=== PATIENT | female | born 1980 | race Caucasian/White ===

== ENCOUNTER 2018-11-27 07:54 | Day surgery (SDC) | payer BC, SELFPAY ==
[2018-11-27 08:33] LABS: Internal QC Validated? YES +Cl - CLEAR BKGD
[2018-11-27 08:34] LABS: Pregnancy, Urine Negative Negative
[2018-11-27 08:54] VITALS: BP 156/85; PULSE 79; RESP 16; TEMP 36.5; O2SAT 100; BMI 37.5
[2018-11-27] MEDS: Cefazolin 2 GM in 0.9% Normal Saline 100 ML IV (09:57)
[2018-11-27] MEDS: Sodium Bicarbonate 50 MEQ/50 ML Vial IRRIGATION (10:05)
[2018-11-27] MEDS: Heparin 10,000 UNITS/10 ML Vial 10000 UNITS OPERA.SITE (10:05)
[2018-11-27] MEDS: Dimethyl Sulfoxide 50 ML Solution URETHRAL (10:05)
--- NOTE | 2018-11-27 10:09 | DCINST_ITS ---
Discharge Diet: Light diet - advance as tolerated Discharge Activity: Return to Normal Activity Suture Line Care: Avoid Pulling/Pushing, Avoid Pinching/Bending Allergies/Adverse Reactions: Allergies cyclobenzaprine [From Flexeril] Allergy (Verified 11/20/18 13:45) Hives duloxetine [From Cymbalta] Allergy (Verified 11/20/18 13:45) Other SYMPTOMS OF A HEARTACHE Medications to take at Discharge DiphenhydrAMINE [Benadryl] 25 mg PO DAILY 11/20/18 Loratadine [Claritin] 10 mg PO DAILY 11/20/18 Mirabegron [Myrbetriq] 50 mg PO DAILY 11/20/18 Mth/Me Blue/Sod Phos/Phen/Hyos [Uribel Capsule] 1 each PO TID 11/20/18 Pentosan Polysulfate Sodium [Elmiron] 100 mg PO TID 11/20/18 traMADol [Ultram (G)] 50 mg PO Q6H PRN PRN 11/20/18 Orders to be completed after discharge: ,Urine Time Frame: 11/27/18, Location: Laboratory Primary Care Physician: Beulah Resendiz MD [Primary Care Provider] - Test Results: Test results from this visit will be discussed in further detail at your follow- up appointment, if applicable. Please Follow Up With: Basilio Dunne MD When: in 2 weeks, please call to make an appointment.
--- NOTE | 2018-11-27 10:09 | PCM.OPRPT ---
Report of Operation Date of Procedure: 11/27/18 Pre-Operative Diagnosis: Interstitial cystitis Post-Operative Diagnosis: Same Surgery/Procedure Performed:: Cystoscopy, hydrodistention of the bladder, instillation of medications for interstitial cystitis Description of Surgical Findings:: 38-year-old female who has interstitial cystitis she required hydrodistention in the past she has been having a lot of bladder pain and wants to have another hydrodistention that she has a lot of relief of pressure and pain after hydrodistention. Expect that the patient will try like to limit the number hydrodistention's last year she had before hydrodistention that I thought was a little bit excessive. 38-year-old female taken back to the operating room after anesthesia was spinal she was placed in dorsolithotomy position the urethra vaginal area prepped and draped in usual sterile fashion went of the bladder with a 21 [place] rigid cystourethroscope the entire bladder was normal no tumors or stones within the bladder I then I distended the bladder 80 cm of water was hung up and we distended the bladder for 5 minutes straight then drained the bladder and he had a volume of 425 cc we then did another hydrodistention for 5 minutes the second volume was 520 cc so did improve with the second hydrodistention we then placed a 20 [place] catheter bladder we instilled a cocktail of medications into the bladder for IC including DMSO bicarbonate lidocaine heparin. After that this was instilled patient anesthetic was reversed catheter was left in place and she went to the PACU with a catheter clamped we will unclamp the catheter an hour and then remove the catheter after she is ambulating and she will go home after she she urinates she will follow-up in office in for a few weeks. Type of Anesthesia:: Spinal - Admit VTE Documentation VTE Present on Admission: No VTE Mechan Device Prophylaxis: SCD's
[2018-11-27 10:18] VITALS: BP 119/89; BP 156/85; PULSE 102; RESP 16; TEMP 36.1; O2SAT 100
[2018-11-27 10:30] VITALS: BP 133/89; BP 156/85; PULSE 91; RESP 16; O2SAT 99
[2018-11-27 10:45] VITALS: BP 131/88; BP 156/85; PULSE 82; RESP 16; O2SAT 100
[2018-11-27 11:00] VITALS: BP 101/70; BP 156/85; PULSE 86; RESP 16; TEMP 36.1; O2SAT 98
[2018-11-27] MEDS: Ketorolac 15 MG/ML Vial IV (11:02)
[2018-11-27] MEDS: Ondansetron 4 MG/2 ML Vial IV (14:41)
[2018-11-27 16:10] VITALS: BP 119/81; BP 156/85; PULSE 75; RESP 16; TEMP 36.6; O2SAT 100
== END 2018-11-27 16:18 | disposition home or self-care (01) ==
LOC: SDC 07:56 → AC 07:57
PROVIDERS: Family Provider Internal Medicine; PCP Internal Medicine; Referring Provider Urology; Visit Provider Urology
PROC: 0T7B7ZZ Dilation of Bladder, Via Natural or Artificial Opening (ICD-10-PCS; CPT 51720; principal; 2018-11-27 09:50)
DX: N30.11 Interstitial cystitis (chronic) with hematuria (principal); R35.0 Frequency of micturition; R35.1 Nocturia; Z87.891 Personal history of nicotine dependence
CPT/HCPCS: 00910; 51720; 52260; 81025; J7120; A4216; J1212; J2405

== ENCOUNTER 2019-04-16 07:48 | Day surgery (SDC) | payer BC, SELFPAY ==
[2019-04-16] VITALS (7 sets, daily range): BP systolic 113–149; BP diastolic 68–93; PULSE 69–101; RESP 16; TEMP 36.2–36.6; O2SAT 93–100; BMI 39.2
[2019-04-16 08:07] LABS: Internal QC Validated? YES +Cl - CLEAR BKGD; Pregnancy, Urine Negative Negative
[2019-04-16] MEDS: Cefazolin 2 GM in 0.9% Normal Saline 100 ML IV (09:31)
--- NOTE | 2019-04-16 09:44 | DCINST_ITS ---
Discharge Diet: Light diet - advance as tolerated Discharge Activity: Return to Normal Activity Suture Line Care: Avoid Pulling/Pushing, Avoid Pinching/Bending Allergies/Adverse Reactions: Allergies cyclobenzaprine [From Flexeril] Allergy (Verified 04/09/19 10:06) Hives duloxetine [From Cymbalta] Allergy (Verified 04/09/19 10:06) Other SYMPTOMS OF A HEARTACHE Medications to take at Discharge DiphenhydrAMINE [Benadryl] 25 mg PO DAILY 11/20/18 Loratadine [Claritin] 10 mg PO DAILY 11/20/18 Mirabegron [Myrbetriq] 50 mg PO DAILY 11/20/18 Mth/Me Blue/Sod Phos/Phen/Hyos [Uribel Capsule] 1 each PO TID 11/20/18 Pentosan Polysulfate Sodium [Elmiron] 100 mg PO TID 11/20/18 traMADol [Ultram (G)] 50 mg PO Q6H PRN PRN 11/20/18 Acetaminophen [Tylenol Extra Strength] 500 mg PO Q4H PRN PRN #20 tab 04/16/19 Ciprofloxacin [Cipro] 500 mg PO BID #6 tab 04/16/19 Ibuprofen 600 mg PO Q6H PRN PRN #20 tab 04/16/19 The following prescriptions were given: Acetaminophen [Tylenol Extra Strength] 500 mg PO Q4H PRN PRN #20 tab PRN Reason: Pain Ibuprofen 600 mg PO Q6H PRN PRN #20 tab PRN Reason: Pain Ciprofloxacin [Cipro] 500 mg PO BID #6 tab Primary Care Physician: Beulah Resendiz MD [Primary Care Provider] - Test Results: Test results from this visit will be discussed in further detail at your follow- up appointment, if applicable. Please Follow Up With: Basilio Dunne MD When: please call to make an appointment.
--- NOTE | 2019-04-16 10:11 | PCM.OPRPT ---
Report of Operation Date of Procedure: 04/16/19 Pre-Operative Diagnosis: Interstitial cystitis with recent flareup Post-Operative Diagnosis: Same Surgery/Procedure Performed:: Cystoscopy hydrodistention of the bladder x2 and instillation of a bladder IC cocktail Description of Surgical Findings:: Indication 39-year-old female presents to the operating room for hydrodistention and instillation of interstitial cystitis IC cocktail Patient was taken back to the operating room after smooth induction of general anesthesia she is she was placed in dorsolithotomy position the urethra and vaginal area were prepped and draped in usual sterile fashion went into the bladder with a 819 [place] rigid cystourethroscope the entire bladder was normal some mild irritation of the bladder I then filled up the bladder as much as possible we held the bags of 80 cm above the bladder and her bladder distention was performed she could only hold about 400 cc for started leaking around the cystoscope and only 400 cc with the first distention for 5 minutes seconds attention was then done again only could hold 500 cc and we distended the bladder for 5 minutes. At the end of the distention Rolle catheter was placed 20 [place] catheter into the bladder we placed a cocktail of IC medications as documented per the nursing record into the bladder this was combination of heparin lidocaine DMSO bicarbonate. The the instillation was put into the bladder the catheter was clamped and patient anesthetic was reversed plan to leave the catheter in for 2 hours leave the bladder medication and for 2 hours drained the medication after 2 hours and remove the catheter retirement go home after she urinates she will be follow-up in my office after the hydrodistention in a few weeks. Type of Anesthesia:: General
[2019-04-16] MEDS: Ketorolac 15 MG/ML Vial IV (10:35)
--- NOTE | 2019-04-16 10:40 | OP.PCM_ITS ---
Report of Operation Date of Procedure: 04/16/19 Pre-Operative Diagnosis: Interstitial cystitis with recent flareup Post-Operative Diagnosis: Same Surgery/Procedure Performed:: Cystoscopy hydrodistention of the bladder x2 and instillation of a bladder IC cocktail Description of Surgical Findings:: Indication 39-year-old female presents to the operating room for hydrodistention and instillation of interstitial cystitis IC cocktail Patient was taken back to the operating room after smooth induction of general anesthesia she is she was placed in dorsolithotomy position the urethra and vaginal area were prepped and draped in usual sterile fashion went into the bladder with a 819 Citizen [place] rigid cystourethroscope the entire bladder was normal some mild irritation of the bladder I then filled up the bladder as much as possible we held the bags of 80 cm above the bladder and her bladder distention was performed she could only hold about 400 cc for started leaking around the cystoscope and only 400 cc with the first distention for 5 minutes seconds attention was then done again only could hold 500 cc and we distended the bladder for 5 minutes. At the end of the distention Rolle catheter was placed 20 Citizen [place] catheter into the bladder we placed a cocktail of IC medications as documented per the nursing record into the bladder this was combination of heparin lidocaine DMSO bicarbonate. The the instillation was put into the bladder the catheter was clamped and patient anesthetic was reversed plan to leave the catheter in for 2 hours leave the bladder medication and for 2 hours drained the medication after 2 hours and remove the catheter snf go home after she urinates she will be follow-up in my office after the hydrodistention in a few weeks. Type of Anesthesia:: General
--- NOTE | 2019-04-16 13:24 | NURSING ---
tatum clamped, per report from OR nurse, AC nurse aware to unclamp in 2 hours.
== END 2019-04-16 13:43 | disposition home or self-care (01) ==
LOC: SDC 07:51 → AC 07:52
PROVIDERS: Anesthesiology; Family Provider Internal Medicine; PCP Internal Medicine; Referring Provider Urology; Visit Provider Urology
PROC: 0T7B7ZZ Dilation of Bladder, Via Natural or Artificial Opening (ICD-10-PCS; CPT 51720; principal; 2019-04-16 09:15)
DX: N30.10 Interstitial cystitis (chronic) without hematuria (principal); I10 Essential (primary) hypertension; R35.1 Nocturia; R35.0 Frequency of micturition; Z87.891 Personal history of nicotine dependence
CPT/HCPCS: 51720; 52260; 81025; J7120; A4216; J1212; J2405

== ENCOUNTER 2020-08-11 06:04 | Day surgery (SDC) | payer BC, SELFPAY ==
[2019-04-16 08:27] VITALS: BMI 39.2
[2020-08-11] VITALS (9 sets, daily range): BP systolic 114–158; BP diastolic 51–95; PULSE 65–110; RESP 16–18; TEMP 36.1–36.7; O2SAT 96–100; BMI 39.5
[2020-08-11 06:36] LABS: Internal QC Validated? YES +Cl - CLEAR BKGD; Pregnancy, Urine Negative Negative
[2020-08-11] MEDS: Lactated Ringers 1,000 ML 100 ML IV ×2 (06:52→10:51)
--- NOTE | 2020-08-11 07:19 | PCM.HP.STD ---
Problem List (1) Interstitial cystitis Status: Chronic History of Present Illness Date of Admission: 08/11/20 Chief Complaint: Interstitial cystitis The patient is a 40 year old female with a history of interstitial cystitis she is currently taking Uribel to manage her bladder pain and also on Myrbetriq she frequently has to go to the bathroom now she is having more frequency urgency pain discomfort getting up at night multiple times she is had hydrodistention's in the past with good results and success and improvement of her symptoms she understands is possible that the resolution and the results of the hydrostatic distention can vary and no guarantees were made that her symptoms will resolve with the procedure. Working to proceed with a spinal anesthesia because she has a lot of pain and discomfort with hydrodistention. Past Medical History Past Medical History (Chronic Problems): Chronic Problems Interstitial cystitis (Chronic) Allergies cyclobenzaprine [From Flexeril] Allergy (Verified 08/03/20 10:55) Hives duloxetine [From Cymbalta] Allergy (Verified 08/03/20 10:55) Other SYMPTOMS OF A HEARTACHE Home Medications: Ambulatory Orders Medication Instructions Recorded DiphenhydrAMINE [Benadryl] 25 mg PO DAILY PRN 11/20/18 Loratadine [Claritin] 10 mg PO DAILY 11/20/18 Mirabegron [Myrbetriq] 50 mg PO DAILY 11/20/18 Mth/Me Blue/Sod Phos/Phen/Hyos 1 each PO TID 11/20/18 [Uribel Capsule] traMADol [Ultram (G)] 50 mg PO Q6H PRN PRN 11/20/18 Acetaminophen [Tylenol Extra 500 mg PO Q4H PRN PRN #20 tab 04/16/19 Strength] Ibuprofen 600 mg PO Q6H PRN PRN #20 tab 04/16/19 Surgical History: no surgical history Smoking Status: Former smoker Review of Systems Constitutional: Denies: Chills, Fever, Weight Change HEENT: Denies: Head Aches, Sinus Congestion, Sinus Drainage Cardiovascular: Denies: Chest Pain, Palpitations Respiratory: Denies: Cough, Shortness of breath at rest, Sputum production Gastrointestinal: Denies: Abdominal Pain, Nausea, Vomiting Genitourinary: Denies: Dysuria Musculoskeletal: Denies: Joint Pain, Joint Tenderness Skin: Denies: Rash, Wounds Neurological: Denies: Numbness, Tingling, Focal weakness Psychiatric: Denies: Anxiety, Depression, Homicidal Ideations, Suicidal Ideations Hematologic/ Lymphatic: Denies: Easy Bruising, Easy Bleeding VTE Information - Inpt Only VTE Present on Admission: No - Physical Exam Vitals/I&O's: Vital Signs Temp Pulse Resp BP Pulse Ox 98.1 F 92 16 158/95 H 97 08/11/20 06:40 08/11/20 06:40 08/11/20 06:40 08/11/20 06:40 08/11/20 06:40 Oxygen Delivery Method Room Air Weight: 117.9 kg Body Mass Index (BMI) 39.5 General: Alert, Oriented x3, Cooperative HEENT: Atraumatic, PERRLA, EOMI, Normocephalic Neck: Supple, No JVD, Negative Carotid Bruits Lungs: Clear to auscultation, Normal air movement Cardiovascular: Regular rate, No murmurs Abdomen: Bowel Sounds Present, Soft, Non Tender Extremities: No edema, Capillary Refill Less than 3 Seconds Skin: No rashes, No breakdown Musculoskeletal: No Tenderness to Palpation of Joints or Extremities Neurological: Cranial nerves II-XII grossly intact Psych/Mental Status: Normal Affect, Appropriate Laboratory Results 08/11/20 06:28: Urine Test Negative Current Medications Cefazolin Sodium 2 gm/ Sodium (Chloride) 110 mls @ 150 mls/hr IV PREOP ONE Stop: 08/11/20 08:13 Lactated Ringer's () 1,000 mls @ 100 mls/hr IV .Q10H PENELOPE Last Admin: 08/11/20 06:52 Dose: 100 mls/hr Documented by: Assessment/Plan 40-year-old female with interstitial cystitis plan to proceed with cystoscopy hydrodistention and instillation of IC medications into the bladder this will be done under spinal anesthesia.
--- NOTE | 2020-08-11 07:21 | DCINST_ITS ---
Discharge Diet: Light diet - advance as tolerated Discharge Activity: Return to Normal Activity Call your doctor if you observe: Fever of 101 or Higher Allergies/Adverse Reactions: Allergies cyclobenzaprine [From Flexeril] Allergy (Verified 08/03/20 10:55) Hives duloxetine [From Cymbalta] Allergy (Verified 08/03/20 10:55) Other SYMPTOMS OF A HEARTACHE Medications to take at Discharge DiphenhydrAMINE [Benadryl] 25 mg PO DAILY PRN 11/20/18 Loratadine [Claritin] 10 mg PO DAILY 11/20/18 Mirabegron [Myrbetriq] 50 mg PO DAILY 11/20/18 Mth/Me Blue/Sod Phos/Phen/Hyos [Uribel Capsule] 1 each PO TID 11/20/18 traMADol [Ultram (G)] 50 mg PO Q6H PRN PRN 11/20/18 Acetaminophen [Tylenol Extra Strength] 500 mg PO Q4H PRN PRN #20 tab 04/16/19 Ibuprofen 600 mg PO Q6H PRN PRN #20 tab 04/16/19 Primary Care Physician: Beulah Resendiz MD [Primary Care Provider] - Test Results: Test results from this visit will be discussed in further detail at your follow- up appointment, if applicable. Please Follow Up With: Basilio Dunne MD When: in 2 weeks, please call to make an appointment.
[2020-08-11] MEDS: Cefazolin 2 GM in 0.9% Normal Saline 100 ML IV (07:28)
[2020-08-11] MEDS: Lidocaine Jelly 2% 20 ML Syringe (URO-JET) 20 APPLIC (07:40)
[2020-08-11] MEDS: Sodium Bicarbonate 50 MEQ/50 ML Vial IRRIGATION (08:00)
[2020-08-11] MEDS: Heparin 10,000 UNITS/10 ML Vial 10000 UNITS OPERA.SITE (08:00)
[2020-08-11] MEDS: Hydrocortisone Sod Succinate 100 MG/2 ML Vial 150 MG IV (08:00)
[2020-08-11] MEDS: Dimethyl Sulfoxide 50 ML Solution URETHRAL (08:00)
--- NOTE | 2020-08-11 08:04 | PCM.OPRPT ---
Problem List (1) Interstitial cystitis Status: Chronic Report of Operation Date of Procedure: 08/11/20 Pre-Operative Diagnosis: Interstitial cystitis Post-Operative Diagnosis: Same Surgery/Procedure Performed:: Cystoscopy, hydrodistention of the bladder, instillation of interstitial cystitis cocktail Description of Surgical Findings:: 40-year-old female who has interstitial cystitis she is been doing relatively well for the past year but now is gone worse urinary symptoms with frequency, urgency having to go the bathroom all the time, also has bladder pain constantly. At night she is up multiple times. She is currently taking Uribel, she is also taking Myrbetriq but with these medications she still having lot of pain and problems so today we can proceed with a hydrodistention of the bladder she understands no guarantees this will help her urinary symptoms. 40-year-old female taken back to the operating room at the smooth induction of anesthesia she had a spinal anesthesia per her request. She was placed in dorsolithotomy position after the spinal took cold. The urethra and vaginal area were prepped and draped in usual sterile fashion by the nurses I then went into the bladder with a rigid cystourethroscope entire length the urethra was normal the trigone was normal some mild trigonitis the left and right ureteral orifice were normal position the bladder wall was nice and smooth no tumors or stones seen within the bladder wall inspected the posterior wall left wall right wall at the dome and anterior bladder. After complete inspection then we performed the first hydrodistention we set the normal saline at 80 cm above her bladder and ran the water in for 5minutes she was not able to hold that much water in her bladder a lot of the water would run around the the scope. After the first distention of 5 minutes we only drained 300 cc in the bladder. She did have glomerulations throughout the bladder consistent with IC. We then did a second distention of the bladder with with normal saline again we distended the bladder for 5minutes this time was able to get 400 cc in the bladder after the distention of the bladder. We placed lidocaine jelly into the bladder and then I drained the bladder and then placed a red rubber catheter in the bladder about 70 cc of a interstitial cocktail medication was put inside the bladder this consisted of bicarb lidocaine Solu-Cortef, DMSO, and heparin after the installation of the medication was put into her bladder we left the medication in her bladder patient anesthetic was reversed she was taken out of lithotomy transferred to the cart and taken to the recovery room in stable condition she will follow-up in a few weeks for checkup on her symptoms. Type of Anesthesia:: General Drains: none - Admit VTE Documentation VTE Present on Admission: No VTE Mechan Device Prophylaxis: SCD's
[2020-08-11] MEDS: Ketorolac 15 MG/ML Vial IV (08:17)
== END 2020-08-11 12:36 | disposition home or self-care (01) ==
LOC: SDC 06:05 → AC 06:05
PROVIDERS: Anesthesiology; PCP Internal Medicine; Referring Provider Urology; Visit Provider Urology
PROC: 0T7B7ZZ Dilation of Bladder, Via Natural or Artificial Opening (ICD-10-PCS; CPT 52260; principal; 2020-08-11 07:20)
DX: N30.10 Interstitial cystitis (chronic) without hematuria (principal); Z11.59 Encounter for screening for other viral diseases; G43.909 Migraine, unspecified, not intractable, without status migrainosus; Z87.891 Personal history of nicotine dependence
CPT/HCPCS: 00910; 52260; 81025; 87635; C9803; J7120; A4216; J1212; J2405; U0003

== ENCOUNTER 2024-03-31 09:04 | Outpatient (RCR) | payer BC, SELFPAY | END 2024-04-02 23:59 | LOC: NS 09:04 | PROVIDERS: PCP Internal Medicine; Visit Provider Nurse Practitioner | DX: Z71.3 Dietary counseling and surveillance (principal); E66.01 Morbid (severe) obesity due to excess calories; Z68.41 Body mass index [BMI] 40.0-44.9, adult | CPT/HCPCS: 97802 ==

== ENCOUNTER 2024-05-11 09:04 | Outpatient (RCR) | payer BC, SELFPAY | END 2024-06-02 23:59 | LOC: NS 09:04 | PROVIDERS: PCP Internal Medicine; Referring Provider Nurse Practitioner; Visit Provider Nurse Practitioner | DX: Z71.3 Dietary counseling and surveillance (principal); E66.01 Morbid (severe) obesity due to excess calories; Z68.41 Body mass index [BMI] 40.0-44.9, adult | CPT/HCPCS: 97803 ==

== ENCOUNTER 2024-06-15 09:01 | Outpatient (RCR) | payer BC, SELFPAY | END 2024-07-03 23:59 | LOC: NS 09:01 | PROVIDERS: PCP Internal Medicine; Referring Provider Nurse Practitioner; Visit Provider Nurse Practitioner | DX: Z71.3 Dietary counseling and surveillance (principal); E66.01 Morbid (severe) obesity due to excess calories; Z68.41 Body mass index [BMI] 40.0-44.9, adult | CPT/HCPCS: 97803 ==